=== PATIENT | male | born 1975 | race Two or more races ===

== ENCOUNTER → 2022-01-07 | Outpatient (CLI) | payer OTHER ==
[~2022-01-07] MED LIST: GADOTERATE MEGLUMINE 10 MMOL/20 ML VIAL IVP ONE
== END | disposition home or self-care (01) ==
LOC: RADPV 15:26
PROVIDERS: ATTEND Psychiatry & Neurology Neurology
DX: G93.89 Other specified disorders of brain (principal); R56.9 Unspecified convulsions; J32.3 Chronic sphenoidal sinusitis; Z98.890 Other specified postprocedural states
CPT/HCPCS: 70553; A9575